=== PATIENT | female | born 1985 | race Caucasian/White ===

== ENCOUNTER → 2017-08-25 | Outpatient (CLI) | payer BC | END | disposition home or self-care (01) | LOC: ROC 09:45 | PROVIDERS: ATTEND Radiology Radiation Oncology | DX: Z08 Encounter for follow-up examination after completed treatment for malignant neoplasm (principal); C53.9 Malignant neoplasm of cervix uteri, unspecified | CPT/HCPCS: 99213; G0463 ==

== ENCOUNTER 2017-09-29 07:24 | Day surgery (SDC) | payer BC ==
[~2017-09-29] VITALS: Ht 162.6 cm; Wt 81.4 kg
[2017-09-29] MEDS ORDERED: LACTATED RINGERS 1,000 ML IV SCH (07:54)
[2017-09-29 08:07] VITALS: BP 120/82
[2017-09-29] MEDS ORDERED: PLEASE ENTER HEIGHT AND WEIGHT MC SCH (08:14)
[2017-09-29 08:20] VITALS: BP 120/82
[2017-09-29 09:09] LABS: HCG UR SG 1.021 (1.003-1.030)
[2017-09-29] MEDS ORDERED: GABAPENTIN 300 MG CAPSULE ONE (09:52)
[2017-09-29] MEDS ORDERED: ACETAMINOPHEN 500 MG TABLET ONE (09:52)
[2017-09-29] MEDS ORDERED: SCOPOLAMINE PATCH, 1.5MG PATCH.TD72 TD ONE ×2 (09:52→10:00)
[2017-09-29] MEDS ORDERED: MIDAZOLAM 1 MG/ML, 2ML ONE (09:54)
[2017-09-29] MEDS ORDERED: FENTANYL PF 250 MCG/5ML ONE (09:54)
[2017-09-29] MEDS ORDERED: ONDANSETRON 2MG/ML, 2ML ONE (09:58)
[2017-09-29] MEDS ORDERED: DEXAMETHASONE 4 MG/ML, 1ML ONE (09:58)
[2017-09-29] MEDS ORDERED: PROPOFOL 10 MG/ML, 20ML ONE (09:58)
[2017-09-29] MEDS ORDERED: CEFAZOLIN 1,000 MG ONE (09:58)
[2017-09-29] MEDS ORDERED: ROCURONIUM 10MG/ML,5ML ONE (09:58)
[2017-09-29] MEDS ORDERED: NEOSTIGMINE 1 MG/ML, 10ML ONE (09:58)
[2017-09-29] MEDS ORDERED: GLYCOPYRROLATE 0.2MG/1ML, 5ML ONE (09:58)
[2017-09-29] MEDS ORDERED: SUCCINYLCHOLINE 20 MG/ML, 10ML ONE (09:58)
[2017-09-29] MEDS ORDERED: GABAPENTIN 300 MG CAPSULE PO ONE (10:00)
[2017-09-29] MEDS ORDERED: ACETAMINOPHEN 500 MG TABLET PO ONE (10:00)
[2017-09-29] MEDS ORDERED: BUPIVACAINE/PF-EPI 0.25% 1:200K INFIL ONE (10:37)
[2017-09-29] MEDS ORDERED: FENTANYL PF 100 MCG/2ML IV PRN (11:30)
[2017-09-29] MEDS ORDERED: hydrALAzine 20 MG/ML, 1ML IV PRN (11:30)
[2017-09-29] MEDS ORDERED: ALBUTEROL SULFATE 2.5 MG/3 ML NPPB PRN (11:30)
[2017-09-29] MEDS ORDERED: OXYcodone 5 MG/5 ML ORAL.SOL UDC PO PRN (11:30)
[2017-09-29] MEDS ORDERED: LABETALOL 5MG/ML, 20ML IV PRN (11:30)
[2017-09-29] MEDS ORDERED: PROMETHAZINE 25 MG/ML, 1ML IV PRN (11:30)
[2017-09-29] MEDS ORDERED: HYDROmorphone 1 MG/ML, 1ML IV PRN (11:30)
[2017-09-29] MEDS ORDERED: ONDANSETRON 2MG/ML, 2ML IVPush PRN (11:30)
[2017-09-29] MEDS ORDERED: KETOROLAC 30 MG/1 ML IV PRN (11:30)
[2017-09-29] MEDS ORDERED: MEPERIDINE/PF 25MG/0.5ML IVPush PRN (11:30)
[2017-09-29] MEDS ORDERED: METOCLOPRAMIDE 5 MG/ML, 2ML IV PRN (11:30)
[2017-09-29] MEDS ORDERED: KETOROLAC 30 MG/1 ML ONE (11:51)
== END 2017-09-29 13:45 | disposition home or self-care (01) ==
LOC: OUT 07:24
PROVIDERS: ATTEND Specialist
DX: C53.9 Malignant neoplasm of cervix uteri, unspecified (principal); Z87.891 Personal history of nicotine dependence
CPT/HCPCS: 58661; 81025; 88302; J0330; J0690; J1100; J1885; J2250; J2405; J2704; J2710; J3010; J3490; J7120

== ENCOUNTER → 2017-10-02 | Outpatient (CLI) | payer BC ==
[2017-10-02 15:44] LABS: BASOPHILS # (AUTO) 0.02 x10^3/uL (0-0.1); BASOPHILS % (AUTO) 0 % (0-1); EOSINOPHILS # (AUTO) 0.43 x10^3/uL (0-0.4); EOSINOPHILS % (AUTO) 6 % (1-7); LYMPHOCYTES # (AUTO) 1.33 x10^3/uL (1-3.4); LYMPHOCYTES % (AUTO) 19 % (22-44); MD NO; MEAN CORPUSCULAR HEMOGLOBIN 31.2 pg (27.0-34.8); MEAN CORPUSCULAR HGB CONC 33.6 g/dL (32.4-35.8); MEAN CORPUSCULAR VOLUME 92.7 fL (80-100); MEAN PLATELET VOLUME 10.1 fL (7.4-10.4); MONOCYTES # (AUTO) 0.42 x10^3/uL (0.2-0.8); MONOCYTES % (AUTO) 6 % (2-9); NEUTROPHILS # (AUTO) 4.84 x10^3/uL (1.8-6.8); NEUTROPHILS % (AUTO) 69 % (42-75); PLATELET COUNT 179 x10^3/uL (130-400); RED BLOOD COUNT 3.83 x10^6/uL (3.82-5.3); RED CELL DISTRIBUTION WIDTH 14.3 % (9.6-15.2)
[2017-10-02 15:51] LABS: ALANINE AMINOTRANSFERASE 14 U/L (12-78); ALBUMIN 3.5 g/dL (3.4-5.0); ANION GAP 7 mmol/L (5-15); CALCIUM 8.4 mg/dL (8.5-10.1); CHLORIDE 105 mmol/L (98-107); CREATININE 1.31 mg/dL (0.55-1.02)
[2017-10-02 15:54] LABS: ALKALINE PHOSPHATASE 61 U/L (45-117); BILIRUBIN,TOTAL 0.4 mg/dL (0.2-1.0); TOTAL PROTEIN 7.1 g/dL (6.4-8.2)
== END | disposition home or self-care (01) ==
LOC: LAB 15:23
PROVIDERS: ATTEND Radiology Radiation Oncology
DX: Z51.11 Encounter for antineoplastic chemotherapy (principal); C53.0 Malignant neoplasm of endocervix; E83.42 Hypomagnesemia
CPT/HCPCS: 36415; 80053; 83735; 85025

== ENCOUNTER → 2017-11-06 | Outpatient (CLI) | payer BC ==
[~2017-11-06] MED LIST: DEXA4TAB PO; IBUP-1623 PO; PROC10TA2 PO
[2017-11-06 10:48] LABS: ALANINE AMINOTRANSFERASE 29 U/L (12-78); ALBUMIN 3.4 g/dL (3.4-5.0); ANION GAP 9 mmol/L (5-15); CALCIUM 8.8 mg/dL (8.5-10.1); CHLORIDE 98 mmol/L (98-107)
[2017-11-06 10:50] LABS: ALKALINE PHOSPHATASE 58 U/L (45-117); BILIRUBIN,TOTAL 0.5 mg/dL (0.2-1.0); TOTAL PROTEIN 6.9 g/dL (6.4-8.2)
[2017-11-06 11:06] LABS: MEAN CORPUSCULAR HEMOGLOBIN 31.1 pg (27.0-34.8); MEAN CORPUSCULAR VOLUME 91.5 fL (80-100); MEAN PLATELET VOLUME 7.8 fL (7.4-10.4); PLATELET COUNT 97 x10^3/uL (130-400); RED BLOOD COUNT 4.33 x10^6/uL (3.82-5.3); RED CELL DISTRIBUTION WIDTH 13.5 % (9.6-15.2)
[2017-11-06 11:39] LABS: INTERNATIONAL NORMALIZED RATIO 0.92 (0.93-1.1); PROTHROMBIN TIME 9.6 Seconds (9.6-11.5)
[2017-11-06 12:37] LABS: BASOPHILS % (AUTO) 0 % (0-1); EOSINOPHILS % (AUTO) 0 % (1-7); LYMPHOCYTES # (AUTO) 0.11 x10^3/uL (1-3.4); LYMPHOCYTES % (AUTO) 3 % (22-44); MD SCAN; MONOCYTES # (AUTO) 0.24 x10^3/uL (0.2-0.8); MONOCYTES % (AUTO) 6 % (2-9); NEUTROPHILS # (AUTO) 3.59 x10^3/uL (1.8-6.8); NEUTROPHILS % (AUTO) 91 % (42-75)
== END | disposition home or self-care (01) ==
LOC: STAR 09:49
PROVIDERS: ATTEND Specialist
DX: Z01.818 Encounter for other preprocedural examination (principal); C53.9 Malignant neoplasm of cervix uteri, unspecified; Z87.891 Personal history of nicotine dependence
CPT/HCPCS: 36415; 80053; 85025; 85610; 85730

== ENCOUNTER → 2017-11-27 | Outpatient (CLI) | payer BC ==
[~2017-11-27] MED LIST changes: +ONDA4TAB7 PO
[2017-11-27 12:45] LABS: ALBUMIN 3.1 g/dL (3.4-5.0); ANION GAP 9 mmol/L (5-15); CHLORIDE 100 mmol/L (98-107)
[2017-11-27 12:48] LABS: ALANINE AMINOTRANSFERASE 21 U/L (12-78); ALKALINE PHOSPHATASE 77 U/L (45-117); BILIRUBIN,TOTAL 0.6 mg/dL (0.2-1.0); CREATININE 0.81 mg/dL (0.55-1.02); TOTAL PROTEIN 7.5 g/dL (6.4-8.2)
[2017-11-27 12:54] LABS: MEAN CORPUSCULAR HEMOGLOBIN 31.7 pg (27.0-34.8); MEAN CORPUSCULAR HGB CONC 35.5 g/dL (32.4-35.8); MEAN CORPUSCULAR VOLUME 89.4 fL (80-100); MEAN PLATELET VOLUME 8.6 fL (7.4-10.4); PLATELET COUNT 152 x10^3/uL (130-400); RED BLOOD COUNT 2.79 x10^6/uL (3.82-5.3); RED CELL DISTRIBUTION WIDTH 12.7 % (9.6-15.2)
[2017-11-27 12:55] LABS: MD YES
[2017-11-27 13:03] LABS: BAND#(MANUAL) 0.13 x10^3/uL; BANDS%(MANUAL) 6 % (0-7); NRBC % (MANUAL) 1 % (0-1); SEG#(MANUAL) 0.97 x10^3/uL (1.8-6.8); SEGS% (MANUAL) 46 % (42-75)
[2017-11-27 13:04] LABS: LYMPH#(MANUAL) 0.74 x10^3/uL (1-3.4); LYMPHS% (MANUAL) 35 % (22-44); MONOS#(MANUAL) 0.27 x10^3/uL (0.3-2.7); MONOS% (MANUAL) 13 % (2-9)
[2017-11-27 13:05] LABS: <PLATELET ESTIMATE> ADEQUATE; <PLT MORPHOLOGY> NORMAL PLT MORPH; POLYCHROMASIA 1+
[2017-11-27 13:06] LABS: TOXIC GRAN 1+
== END | disposition home or self-care (01) ==
LOC: CFH 11:25
PROVIDERS: ATTEND Radiology Radiation Oncology
DX: C53.0 Malignant neoplasm of endocervix (principal); D63.0 Anemia in neoplastic disease
CPT/HCPCS: 36415; 80053; 85025

== ENCOUNTER → 2017-12-22 | Outpatient (CLI) | payer BC | END | disposition home or self-care (01) | LOC: EDSTATUS 11-02 15:15 → ROC 07:57 | PROVIDERS: ATTEND Radiology Radiation Oncology | DX: C53.0 Malignant neoplasm of endocervix (principal) | CPT/HCPCS: 99212; G0463 ==

== ENCOUNTER → 2018-02-27 | Outpatient (CLI) | payer BC ==
[2018-02-27 15:50] LABS: MEAN CORPUSCULAR HEMOGLOBIN 32.2 pg (27.0-34.8); MEAN CORPUSCULAR HGB CONC 34.6 g/dL (32.4-35.8); MEAN CORPUSCULAR VOLUME 93.1 fL (80-100); MEAN PLATELET VOLUME 10.6 fL (7.4-10.4); PLATELET COUNT 221 x10^3/uL (130-400); RED BLOOD COUNT 4.23 x10^6/uL (3.82-5.3); RED CELL DISTRIBUTION WIDTH 12.9 % (9.6-15.2)
[2018-02-27 16:01] LABS: ALANINE AMINOTRANSFERASE 18 U/L (12-78); ALBUMIN 4.1 g/dL (3.4-5.0); ANION GAP 9 mmol/L (5-15); CALCIUM 8.9 mg/dL (8.5-10.1); CHLORIDE 104 mmol/L (98-107)
[2018-02-27 16:04] LABS: ALKALINE PHOSPHATASE 83 U/L (45-117); BILIRUBIN,TOTAL 0.3 mg/dL (0.2-1.0); CREATININE 0.83 mg/dL (0.55-1.02); TOTAL PROTEIN 7.7 g/dL (6.4-8.2)
[2018-02-27 16:18] LABS: BASOPHILS # (AUTO) 0.02 x10^3/uL (0-0.1); BASOPHILS % (AUTO) 1 % (0-1); EOSINOPHILS # (AUTO) 0.05 x10^3/uL (0-0.4); EOSINOPHILS % (AUTO) 3 % (1-7); LYMPHOCYTES # (AUTO) 0.79 x10^3/uL (1-3.4); LYMPHOCYTES % (AUTO) 38 % (22-44); MD SCAN; MONOCYTES # (AUTO) 0.22 x10^3/uL (0.2-0.8); MONOCYTES % (AUTO) 11 % (2-9); NEUTROPHILS # (AUTO) 0.98 x10^3/uL (1.8-6.8); NEUTROPHILS % (AUTO) 48 % (42-75)
== END | disposition home or self-care (01) ==
LOC: CFH 13:15
PROVIDERS: ATTEND Specialist
DX: C53.0 Malignant neoplasm of endocervix (principal); E83.42 Hypomagnesemia; N95.8 Other specified menopausal and perimenopausal disorders
CPT/HCPCS: 36415; 80053; 82670; 83001; 83002; 83735; 85025

== ENCOUNTER 2018-05-28 09:05 | Outpatient (CLI) | payer BC | END 2018-05-28 23:59 | disposition home or self-care (01) | LOC: CFH 09:05 | PROVIDERS: ATTEND Radiology Radiation Oncology | DX: Z02.9 Encounter for administrative examinations, unspecified (principal) ==

== ENCOUNTER 2018-05-28 11:47 | Outpatient (CLI) | payer BC | END 2018-05-28 23:59 | disposition home or self-care (01) | LOC: CFH 11:47 | PROVIDERS: ATTEND Radiology Radiation Oncology | DX: Z12.31 Encounter for screening mammogram for malignant neoplasm of breast (principal); C53.0 Malignant neoplasm of endocervix; M85.88 Other specified disorders of bone density and structure, other site | CPT/HCPCS: 77063; 77067; 77080; 78815; A9552 ==